=== PATIENT | male | born 1985 | race Asian ===

== ENCOUNTER 2017-02-02 12:34 | Emergency (ER) | payer OTHER ==
[2017-02-02 12:40] VITALS: TEMP 98.4; O2SAT 96
--- NOTE | 2017-02-02 12:49 | CPEKG ---
Heart Rate: 69 RR Interval: 870 P-R Interval: 160 QRSD Interval: 86 QT Interval: 360 QTC Interval: 386 P [place]: 66 QRS [place]: 77 T Wave [place]: 53 EKG Severity - NORMAL ECG - EKG Impression: SINUS RHYTHM Electronically Signed By: Kapil Betancourt 04-Feb-2017 15:33:52
[2017-02-02] MEDS ORDERED: KETOROLAC 30 MG/1 ML SDV IVP ONE (13:05)
[2017-02-02 13:15] LABS: % IMMATURE GRANULYOCYTES 0.2 % (0.0-1.1); ABSOLUTE IMMATURE GRANULOCYTES 0.01 10^3/uL (0.00-0.10); ADD DIFF? NO; ADD MORPH? NO; ADD SCAN? NO; ATYPICAL LYMPHOCYTE FLAG 20 (0-99); FRAGMENT RBC FLAG 0 (0-99); HEMOGLOBIN 16.2 g/dL (13.7-17.5); LEFT SHIFT FLG 0 (0-99); LIPEMIA HEMOLYSIS FLAG 90 (0-99); MEAN CELL HEMOGLOBIN 28.8 pg (27.9-34.1); MEAN CELL HEMOGLOBIN CONCENTR. 33.8 g/dL (32.4-36.7); MEAN CELL VOLUME 85.4 fL (81.5-99.8); MEAN PLATELET VOLUME 9.4 fL (8.7-11.7); PLATELET CLUMPS FLAG 10 (0-99); PLATELET COUNT 246 10^3/uL (150-400); RED BLOOD CELL COUNT 5.62 10^6/uL (4.40-6.38)
--- NOTE | 2017-02-02 13:19 | EDPHY ---
H & P Time Seen by Provider: 02/02/17 13:15 HPI/ROS: HPI: Mr. Lemons is a 31 yrs, male who presents with Chief Complaint: chest pain Location: Left anterior chest and left lower rib Quality: pain Duration: Since Friday Signs and Symptoms: No shortness of breath, no nausea, no vomiting, no lower leg swelling, no recent long distance travel, positive dry coughing, no fever, positive aching/sharp at times pain without radiation, no indigestion, no seasonal allergies Timing: Last for several hours at a time, worse with coughing. Not positional Severity: Moderate Context: Patient reports approximately 3 days ago, he woke up in his apartment and that there was dry which caused him to have a harsh coughing episode, and then immediately felt some left anterior chest and left lower rib pain. The pain lasted for several hours and that has occurred several times a day for the last 3 days. No personal history of cardiac disease. no family history of cardiac disease. Denies tobacco abuse. Denies recreational drug abuse. Denies environmental exposure. No recent injury. [id number]. Modifying Factors: When to Urgent Care today to be evaluated and they recommended that he be seen in the ER. Comment: ROS: Eyes: No blurred vision Respiratory: No shortness of breath, + cough Cardiovascular: + chest pain Gastrointestinal: No nausea, no vomiting no diarrhea Genitourinary: No dysuria Extremities: No myalgias Neurologic: No weakness, no numbness Skin: No rashes Hematologic: No bruising, no bleeding MEDICAL/SURGICAL HISTORY: Generally healthy. No history of surgical procedures. Social History: Works at [employer]. Smoking Status: Never smoked Physical Exam: CONSTITUTIONAL: Pleasant well-appearing male, awake and alert, no obvious distress HEENT: Atraumatic and normocephalic, PERRL, EOMI. Tympanic membranes clear. Oropharynx clear, no exudate and moist pink mucosa. Airway patent. No lymphadenopathy. No meningismus. Cardiovascular: Normal S1/S2, regular rate, regular rhythm, without murmur rub or gallop. PULMONARY/CHEST: Symmetrical and nontender. Clear to auscultation bilaterally Good air movement. No accessory muscle usage. ABDOMEN: Soft, nondistended, nontender, no rebound, no guarding, no peritoneal signs, no masses or organomegaly. No CVAT. EXTREMITIES: 2/2 pulses, no deformities, no clubbing, no cyanosis or edema. NEUROLOGICAL: no focal neuro deficits. GCS 15. SKIN: Warm and dry, no erythema. no rash. Good capillary refill. Constitutional: Initial Vital Signs Temperature (C) 36.9 C 02/02/17 12:38 Heart Rate 67 02/02/17 12:38 Respiratory Rate 18 02/02/17 12:38 Blood Pressure 132/86 H 02/02/17 12:38 O2 Sat (%) 96 02/02/17 12:38 O2 Delivery Mode Room Air Allergies/Adverse Reactions: No Known Allergies Allergy (Unverified 02/02/17 12:38) Home Medications: Medication Instructions Recorded NK [No Known Home Meds] 02/02/17 Medical Decision Making - Diagnostics EKG Interpretation: 12 lead EKG: Indication: chest pain Rhythm: Normal sinus rhythm, rate 69 bpm [place]: Normal Intervals: Normal QRS: Normal ST segments: Normal INTERPRETATION: Normal EKG The 12 lead EKG was interpreted by myself. NO prior EKG to compare. Imaging Results: Imaging Impressions Chest X-Ray 02/02/17 13:04 IMPRESSION: Normal chest x-ray. ED Course/Re-evaluation: Labs, IV medication, EKG, chest x-ray ordered PERC rule low for PE No signs of pneumothorax, pleural effusion, arrhythmia, pericarditis, endocarditis Moderate relief of pain with IV Toradol. Differential Diagnosis: Chest pain including but not limited to myocardial ischemia, pulmonary embolus, chest wall pain, pleural inflammation and pulmonary infectious causes. - Data Points Laboratory Results: Laboratory Results 02/02/17 13:00 02/02/17 13:00 02/02/17 02/02/17 02/02/17 13:00 13:00 13:00 WBC 6.49 10^3/uL 10^3/uL (3.80-9.50) RBC 5.62 10^6/uL 10^6/uL (4.40-6.38) Hgb 16.2 g/dL g/dL (13.7-17.5) Hct 48.0 % % (40.0-51.0) MCV 85.4 fL fL (81.5-99.8) MCH 28.8 pg pg (27.9-34.1) MCHC 33.8 g/dL g/dL (32.4-36.7) RDW 12.0 % % (11.5-15.2) Plt Count 246 10^3/uL 10^3/uL (150-400) MPV 9.4 fL fL (8.7-11.7) Neut % (Auto) 66.4 % % (39.3-74.2) Lymph % (Auto) 22.5 % % (15.0-45.0) [place] % (Auto) 9.4 % % (4.5-13.0) Eos % (Auto) 1.2 % % (0.6-7.6) Baso % (Auto) 0.3 % % (0.3-1.7) Nucleat RBC Rel Count 0.0 % % (0.0-0.2) Absolute Neuts (auto) 4.31 10^3/uL 10^3/uL (1.70-6.50) Absolute Lymphs (auto) 1.46 10^3/uL 10^3/uL (1.00-3.00) Absolute Monos (auto) 0.61 10^3/uL 10^3/uL (0.30-0.80) Absolute Eos (auto) 0.08 10^3/uL 10^3/uL (0.03-0.40) Absolute Basos (auto) 0.02 10^3/uL 10^3/uL (0.02-0.10) Absolute Nucleated RBC 0.00 10^3/uL 10^3/uL (0-0.01) Immature Gran % 0.2 % % (0.0-1.1) Immature Gran # 0.01 10^3/uL 10^3/uL (0.00-0.10) D-Dimer < 0.27 ug/mLFEU ug/mLFEU (0.00-0.50) Sodium 139 mEq/L mEq/L (134-144) Potassium 4.2 mEq/L mEq/L (3.5-5.2) Chloride 102 mEq/L mEq/L (97-110) Carbon Dioxide 23 mEq/l mEq/l (22-31) Anion Gap 14 mEq/L mEq/L (8-16) BUN 11 mg/dL mg/dL (7-23) Creatinine 1.1 mg/dL mg/dL (0.7-1.3) Estimated GFR > 60 Glucose 90 mg/dL mg/dL (70-100) Calcium 10.3 mg/dL mg/dL (8.5-10.4) Total Bilirubin 1.1 mg/dL mg/dL (0.1-1.4) AST 25 IU/L IU/L (17-59) ALT 34 IU/L IU/L (21-72) Alkaline Phosphatase 76 IU/L IU/L (38-126) Troponin I < 0.012 ng/mL ng/mL (0-0.034) Total Protein 9.0 g/dL H g/dL (6.3-8.2) Albumin 5.0 g/dL g/dL (3.5-5.0) Lipase 198.0 IU/L IU/L (23-300) Medications Given: Discontinued Medications Ketorolac Tromethamine (Toradol) 30 mg IVP EDNOW ONE Stop: 02/02/17 13:06 Last Admin: 02/02/17 13:30 Dose: 30 mg Departure - Departure Disposition: Home, Routine, Self-Care Clinical Impression: Costochondritis Condition: Good Additional Instructions: Take ibuprofen 800 mg with food 3 times daily as needed for musculoskeletal pain. Referrals: [facility],. [Clinic] - As per Instructions
[2017-02-02 13:27] LABS: ALANINE AMINOTRANSFERASE 34 IU/L (21-72); ALKALINE PHOSPHATASE 76 IU/L (38-126); ANION GAP 14 mEq/L (8-16); ASPARTATE AMINOTRANSFERASE 25 IU/L (17-59); BILIRUBIN,TOTAL 1.1 mg/dL (0.1-1.4); CALCIUM 10.3 mg/dL (8.5-10.4); CARBON DIOXIDE 23 mEq/l (22-31); CHLORIDE 102 mEq/L (97-110); CREATININE 1.1 mg/dL (0.7-1.3); GLOMERULAR FILTRATION RATE > 60; GLUCOSE 90 mg/dL (70-100); POTASSIUM 4.2 mEq/L (3.5-5.2); SODIUM 139 mEq/L (134-144)
[2017-02-02 13:38] LABS: TROPONIN I < 0.012 ng/mL (0-0.034)
[2017-02-02 14:17] VITALS: BP 106/71; PULSE 65; RESP 16
== END 2017-02-02 14:18 | disposition home or self-care (01) ==
DX: M94.0 Chondrocostal junction syndrome [Tietze] (principal)
CPT/HCPCS: 96374; J1885